=== PATIENT | male | born 1940 | race Caucasian/White ===

== ENCOUNTER 2017-05-15 18:45 | Inpatient (IN) | payer OTHER ==
[~2017-05-15] VITALS: Ht 167.6 cm; Wt 81.8 kg
[2017-05-15] MEDS ORDERED: ONDANSETRON INJ 2 MG/ML 2 ML VIAL IV STA (18:50)
[2017-05-15] MEDS ORDERED: CEFAZOLIN SOD 1000MG/55 ML D5W IV STA (18:50)
[2017-05-15] MEDS ORDERED: MoRPHine SULFATE 4 MG/ML 1 ML CARP\\VIAL IV PRN ×2 (19:00→23:45)
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
[2017-05-15 19:16] LABS: BASO % 0.2 %; BASO ABS # 0.02 K/uL (0-0.2); COMPLETE YES; EOS % 1.5 %; HEMATOCRIT 44.9 % (42-52); IG% 0.8 %; LYMPH ABS # 2.33 K/uL (1.2-3.4); MEAN CORPUSCULAR HEMOGLOBIN 31.3 pg (25-34); MEAN CORPUSCULAR HGB CONC 34.7 g/dl (32-36); MEAN PLATELET VOLUME 11.4 fL (7.4-10.4); MONO % 6.5 %; PLATELET COUNT 216 K/uL (130-400); RED BLOOD COUNT 4.99 M/uL (4.7-6.1); WHITE BLOOD COUNT 8.63 K/uL (4.8-10.8)
[2017-05-15] MEDS ORDERED: NAPR-1169 PO (19:18)
[2017-05-15] MEDS ORDERED: TERA1CAP63 PO (19:18)
[2017-05-15] MEDS ORDERED: ASPI81TA28 PO (19:18)
[2017-05-15] MEDS ORDERED: LISI-461 PO (19:18)
[2017-05-15] MEDS ORDERED: METO50TA16 PO (19:18)
[2017-05-15] MEDS ORDERED: MULT-506 PO (19:18)
[2017-05-15] MEDS ORDERED: ASCA500 PO (19:18)
[2017-05-15] MEDS ORDERED: METO100T14 PO (19:18)
[2017-05-15 19:27] LABS: PROTHROMBIN TIME (PATIENT) 10.8 SECONDS (9.0-12.0)
[2017-05-15 19:34] LABS: BUN/CREATININE RATIO 15.9 (10-20); CALCIUM 9.1 mg/dl (8.5-10.1); POTASSIUM 3.8 mmol/L (3.5-5.1)
--- NOTE | 2017-05-15 20:36 | DIAGNOSTIC IMAGING REPORT ---
CHEST ONE VIEW PORTABLE HISTORY: Generalized abdominal pain. COMPARISON: None. FINDINGS: Moderate hiatus hernia. The heart is normal in size. Right infrahilar lobular density represents prominent mediastinal fat or a fat-containing hernia. No pneumothorax. No pleural effusions. No focal lung consolidations to suggest pneumonia. No evidence for pulmonary edema. Old, healed right lower rib fracture. IMPRESSION: No acute process. Moderate hiatus hernia. Electronically signed by: Deion Manrique M.D. 05/15/2017 8:35 PM Dictated Date/Time: 05/15/2017 8:34 PM
--- NOTE | 2017-05-15 20:45 | DIAGNOSTIC IMAGING REPORT ---
R ANKLE MIN 3 VIEWS ROUTINE, L ANKLE MIN 3 VIEWS ROUTINE, R FOOT MIN 3 VIEWS ROUTINE CLINICAL HISTORY: Bilateral ankle and right foot pain. COMPARISON STUDY: None. FINDINGS: Cortical plate transfixed with screws bridging an old, healed left fibular fracture. The hardware appears intact. Mild left ankle soft tissue swelling. Overlying splint material obscures fine bony detail of the right ankle. Oblique fracture within the distal fibula which demonstrates up to 5 mm of lateral displacement. There is widening of the medial ankle joint up to 5 mm. Soft tissue swelling within the right ankle. There is also 3 mm of posterior displacement of the distal fibular fracture. There is a slightly displaced fracture of the posterior malleolus. Small amount of subcutaneous gas within the distal lower leg/ankle. Suboptimal evaluation of the right foot due to patient positioning. The hindfoot is not included on 2 views. 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 The Lisfranc joint is well aligned. No fracture or dislocation within the right foot. IMPRESSION: 1. Posterior and lateral malleoli fractures of the right ankle as described above with widening of the ankle joint. Small amount of subcutaneous gas of the distal right lower leg/ankle whichmay represent an open fracture versus soft tissue laceration. Clinical correlation recommended. 2. No definite fracture within the right foot. 3. No fracture or dislocation within the left ankle. Electronically signed by: Deion Manrique M.D. 05/15/2017 8:44 PM Dictated Date/Time: 05/15/2017 8:42 PM
[2017-05-15 22:02] LABS: MANUAL MICROSCOPIC REQUIRED? NO; REVIEW REQ? NO; URINE APPEARANCE CLEAR (CLEAR); URINE BILIRUBIN NEG (NEG); URINE COLOR YELLOW; URINE NITRITE NEG (NEG); URINE SPECIFIC GRAVITY 1.015 (1.000-1.030); UROBILINOGEN NEG (NEG)
[2017-05-15] MEDS ORDERED: MULTIVITAMIN TAB PO SCH (23:30)
[2017-05-15] MEDS ORDERED: METOPROLOL TARTRATE 50 MG TAB PO STA (23:32)
[2017-05-15] MEDS ORDERED: TRAMADOL HCL 50 MG TAB PO PRN (23:45)
[2017-05-15] MEDS ORDERED: ONDANSETRON INJ 2 MG/ML 2 ML VIAL IV PRN (23:45)
[2017-05-15] MEDS ORDERED: ACETAMINOPHEN 325 MG TAB PO PRN (23:45)
[2017-05-16] VITALS (13 sets, daily range): BP systolic 116–174; BP diastolic 68–101; PULSE 73–102; TEMP 36.4–36.7; O2SAT 90–97; Ht 167.6 cm; Wt 81.8 kg
[2017-05-16] MEDS ORDERED: LACTATED RINGER'S 1000ML 1,000 ML IV SCH (01:15)
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
[2017-05-16] MEDS: ASPIRIN 81 MG ECTAB PO SCH (08:48)
[2017-05-16] MEDS ORDERED: MULTIVITAMIN TAB PO SCH (09:00)
[2017-05-16] MEDS: LISINOPRIL 10 MG TAB PO SCH (09:53)
[2017-05-16] MEDS: METOPROLOL TARTRATE 50 MG TAB PO SCH ×2 (09:53→21:39)
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
--- NOTE | 2017-05-16 15:54 | History & Physical Bridge Note ---
H&P Re-Evaluation Bridge Note: I have examined the patient, reviewed the History & Physical and in the interval since the performance of the History & Physical I have noted the following changes of clinical significance: No changes noted
[2017-05-16] MEDS ORDERED: ROPIVACAINE 0.5% 5 MG/ML 30 ML VIAL ONE (16:55)
[2017-05-16] MEDS ORDERED: HYDROmorphone INJ 1 MG/ML SYR IV PRN (17:00)
[2017-05-16] MEDS ORDERED: EpHEDrine SULFATE INJ 50 MG/ML AMP IV PRN (17:00)
[2017-05-16] MEDS ORDERED: ONDANSETRON INJ 2 MG/ML 2 ML VIAL IV PRN (17:00)
[2017-05-16] MEDS ORDERED: ATROPINE SULFATE 0.1 MG/ML 5ML SYR IV PRN (17:00)
[2017-05-16] MEDS ORDERED: FENTANYL CITRATE INJ 50 MCG/1 ML 2 ML VIAL IV PRN (17:00)
[2017-05-16] MEDS ORDERED: FENTANYL CITRATE INJ 50 MCG/1 ML 2 ML VIAL ONE (18:05)
[2017-05-16] MEDS ORDERED: MIDAZOLAM HCL 1 MG/ML 2ML VIAL ONE (18:05)
[2017-05-16] MEDS ORDERED: BACITRACIN 50000 UNIT VIAL ONE (18:59)
[2017-05-16] MEDS ORDERED: LIDOCAINE HCL 2% 2 ML VIAL (20MG/ML) ONE (19:11)
[2017-05-16] MEDS ORDERED: CEFAZOLIN SOD 1 GM VIAL ONE (19:11)
[2017-05-16] MEDS ORDERED: PROPOFOL IV EMULSION 10 MG/ML 20 ML VIAL IV ONE (19:11)
[2017-05-16] MEDS ORDERED: VASOPRESSIN 20 UNIT/ML VIAL ONE (19:32)
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
--- NOTE | 2017-05-16 20:43 | Anesthesiology Progress Note ---
Anesthesia Post Op Note Date & Time May 16, 2017 at 20:43 Vital Signs Pain Intensity: 4.0 Vital Signs Past 12 Hours Date Time Temp Pulse Resp B/P (MAP) Pulse Ox O2 Delivery O2 Flow Rate FiO2 05/16/17 15:50 Room Air 05/16/17 15:10 36.4 73 18 173/94 (120) 94 Room Air 05/16/17 14:10 167/74 (105) Notes Mental Status: alert / awake / arousable, participated in evaluation Pt Amnestic to Procedure: Yes Nausea / Vomiting: adequately controlled Pain: adequately controlled Airway Patency, RR, SpO2: stable & adequate BP & HR: stable & adequate Hydration State: stable & adequate Anesthetic Complications: no major complications apparent
[2017-05-16] MEDS ORDERED: OXYCODONE HCL IR 5 MG TAB (IMMEDIATE RELEASE) PO PRN (20:45)
--- NOTE | 2017-05-16 21:19 | DIAGNOSTIC IMAGING REPORT ---
R ANKLE 2 VIEWS HISTORY: 77 years-old Male RT ORIF status post ORIF of the right ankle. Distal tibia and fibular fractures. COMPARISON: Right ankle radiographs 05/15/2017 TECHNIQUE: 3 spot fluoroscopic images of the right ankle were obtained utilizing 27.1 seconds of fluoroscopy time. FINDINGS: There has been interval ORIF with a large lateral plate and screw hardware placement within the distal fibula fixating the previously noted displaced complex fracture. There is improved alignment. There is a large transversely oriented syndesmotic screw from a lateral approach which has also been placed. There is improved alignment of the previously noted posterior malleolar fracture. IMPRESSION: Status post ORIF with improved alignment as above. Please see operative report for further details. The above report was generated using voice recognition software. It may contain grammatical, syntax or spelling errors. Electronically signed by: Luis Altamirano M.D. 05/16/2017 9:18 PM Dictated Date/Time: 05/16/2017 9:16 PM
[2017-05-16] MEDS ORDERED: NURSING VERBAL MED ORDER ONE ×2 (21:30)
[2017-05-16] MEDS: LACTATED RINGER'S 1000ML 1,000 ML IV SCH (21:37)
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
[2017-05-17 00:30] VITALS: BP_SYST 139; BP_SYST 140; BP_DIAS 76; BP_DIAS 82; PULSE 88; PULSE 90; TEMP 36.5; TEMP 36.6; O2SAT 95
[2017-05-17] MEDS: CEFAZOLIN IV 2,000 MG in DEXTROSE 5% 50ML 50 ML IV SCH ×2 (02:14→09:35)
[2017-05-17 04:24] VITALS: BP 151/89; PULSE 101; TEMP 36.6; O2SAT 93
[2017-05-17 07:02] VITALS: BP 154/76; PULSE 72; TEMP 36.8; O2SAT 95
[2017-05-17] MEDS: LACTATED RINGER'S 1000ML 1,000 ML IV SCH (07:24)
--- NOTE | 2017-05-17 08:43 | Orthopedic Progress Note ---
Orthopedic Progress Note Date of Service May 17, 2017. Subjective Post OP Day: 1 Reports: feeling well, pain controlled w PO medications, Denies: complaints, chest pain, SOB, nausea / vomiting, light headedness, calf pain Objective calves soft nontender, N/V intact, capillary refill less than 2 sec., dressing C /D/I, A&O x3, toes mobile Date Time Temp Pulse Resp B/P (MAP) Pulse Ox O2 Delivery O2 Flow Rate FiO2 05/17/17 07:02 36.8 72 17 154/76 (102) 95 Room Air 05/17/17 07:00 Room Air 05/17/17 04:24 36.6 101 16 151/89 (109) 93 Room Air 05/17/17 00:30 36.6 90 18 140/76 (97) 95 Room Air 05/16/17 23:30 Room Air 05/16/17 23:30 36.5 88 18 139/82 (101) 95 Room Air 05/16/17 22:25 36.5 92 18 141/79 (99) 94 Room Air 05/16/17 21:55 36.5 97 18 155/82 (106) 93 Room Air 05/16/17 21:25 36.7 102 18 152/88 (109) 96 Nasal Cannula 2.0 05/16/17 21:25 Nasal Cannula 2.0 05/16/17 21:25 Nasal Cannula 2.0 05/16/17 21:15 100 18 154/83 93 Nasal Cannula 2 05/16/17 21:05 36.3 98 16 136/91 93 Nasal Cannula 2 05/16/17 20:55 102 18 117/81 94 Nasal Cannula 2 05/16/17 20:45 100 13 145/93 96 Oxymask 10 05/16/17 20:35 36.0 99 14 136/62 98 Oxymask 10 05/16/17 15:50 Room Air 05/16/17 15:10 36.4 73 18 173/94 (120) 94 Room Air 05/16/17 14:10 167/74 (105) Assessment & Plan Assessment: POD #1, Right ankle ORIF, Irrigation medial laceration, syndesmosis fixation. Plan: PT/ OT- NON weight bearing with walker DVT proph- ASA D/C plans per primary team F/U w Dr. Parry 10-12 days post op
--- NOTE | 2017-05-17 08:48 | Consultant Recommendations ---
Operating Room Aide Recommendations Date of Service May 17, 2017. Operating Room Aide Recommendations NON weight bearing right leg with walker. Ice/ elevate as needed Keep dressings and splint clean dry and in tact, DO NOT remove or get wet. DVT prophylaxis- Aspirin daily Follow up with Dr. Parry 10-12 days post op, call [facility] at for appt.
[2017-05-17] MEDS: METOPROLOL TARTRATE 50 MG TAB PO SCH (08:59)
[2017-05-17] MEDS: ASPIRIN 81 MG ECTAB PO SCH (08:59)
[2017-05-17] MEDS: LISINOPRIL 10 MG TAB PO SCH (09:00)
[2017-05-17 11:30] VITALS: BP 159/77; PULSE 86; TEMP 36.7; O2SAT 94
--- NOTE | 2017-05-17 12:28 | Progress Note ---
Subjective Date of Service: May 17, 2017. Subjective Pt evaluation today including: conversation w/ patient, physical exam, lab review, review of studies, review of inpatient medication list Saw/examined the patient in room 352 He's doing well, pain is controlled at the ankle No other issues to note Family member at bedside state they have a wheelchair at home, they know he is not to weightbearing on R ankle Problem List Medical Problems: (1) Contusion of left ankle Status: Acute (2) Contusion of left foot Status: Acute (3) Open trimalleolar fracture of right ankle Status: Acute Review of Systems Respiratory: No shortness of breath Cardiac: No chest pain Abdomen: No nausea, No vomiting, No diarrhea Musculoskeletal: No joint pain Medications Current Inpatient Medications Medications (Trade) Dose Ordered Sig/Alessandro Route Start Time Stop Time Status Last Admin Dose Admin Terazosin HCl (Hytrin Cap) 10 mg HS PO 05/16/17 21:00 06/15/17 20:59 05/16/17 21:38 10 MG Aspirin (Ecotrin Tab) 81 mg DAILY PO 05/16/17 09:00 06/15/17 08:59 05/17/17 08:59 81 MG Lisinopril (Zestril Tab) 10 mg QAM PO 05/16/17 09:00 06/15/17 08:59 05/17/17 09:00 10 MG Metoprolol Tartrate (Lopressor Tab) 50 mg BID PO 05/16/17 09:00 06/15/17 08:59 05/17/17 08:59 50 MG Acetaminophen (Tylenol Tab) 650 mg Q4H PRN PO 05/15/17 23:45 06/14/17 23:44 Tramadol HCl (Ultram Tab) not relieved by tylenol @ Q6H PRN PO 05/15/17 23:45 06/14/17 23:44 Ondansetron HCl (Zofran Inj) 4 mg Q6H PRN IV 05/15/17 23:45 06/14/17 23:44 Morphine Sulfate (MoRPHine SULFATE INJ) 4 mg Q3H PRN IV 05/15/17 23:45 05/29/17 23:44 Multivitamins (Multivitamin Tab) 1 tab Q2D PO 05/16/17 09:00 06/15/17 08:59 Oxycodone HCl (Roxicodone Immediate Rel Tab) 1-2 TABS FOR PAIN 1 TABLET ... Q4H PRN PO 05/16/17 20:45 05/30/17 20:44 05/17/17 11:03 5 MG Lactated Ringer's 1,000 ml @ 100 mls/hr Q10H IV 05/16/17 21:30 06/15/17 21:29 05/17/17 07:24 100 MLS/HR Objective Vital Signs Date Time Temp Pulse Resp B/P (MAP) Pulse Ox O2 Delivery O2 Flow Rate FiO2 05/17/17 07:02 36.8 72 17 154/76 (102) 95 Room Air 05/17/17 07:00 Room Air 05/17/17 04:24 36.6 101 16 151/89 (109) 93 Room Air 05/17/17 00:30 36.6 90 18 140/76 (97) 95 Room Air 05/16/17 23:30 Room Air 05/16/17 23:30 36.5 88 18 139/82 (101) 95 Room Air 05/16/17 22:25 36.5 92 18 141/79 (99) 94 Room Air 05/16/17 21:55 36.5 97 18 155/82 (106) 93 Room Air 05/16/17 21:25 36.7 102 18 152/88 (109) 96 Nasal Cannula 2.0 05/16/17 21:25 Nasal Cannula 2.0 05/16/17 21:25 Nasal Cannula 2.0 05/16/17 21:15 100 18 154/83 93 Nasal Cannula 2 05/16/17 21:05 36.3 98 16 136/91 93 Nasal Cannula 2 05/16/17 20:55 102 18 117/81 94 Nasal Cannula 2 05/16/17 20:45 100 13 145/93 96 Oxymask 10 05/16/17 20:35 36.0 99 14 136/62 98 Oxymask 10 05/16/17 15:50 Room Air 05/16/17 15:10 36.4 73 18 173/94 (120) 94 Room Air 05/16/17 14:10 167/74 (105) Physical Exam General Appearance: no apparent distress Respiratory/Chest: no respiratory distress, no accessory muscle use Extremities: normal inspection, no pedal edema, + pertinent finding (R ankle in brace) Assessment and Plan This is a 77 year old male with a PMH of HTN, HLD presented with R ankle fracture R ankle fracture s/p ORIF POD #1 doing well, pain controlled NWB status on the R doing well; aspirin for DVT ppx can be d/c'd home with home health today f/u with Dr. Parry in 10-12 days HTN blood pressure stable DVT ppx aspirin FULL CODE
[2017-05-17] MEDS ORDERED: RXC5 PO (12:31)
--- NOTE | 2017-05-17 12:33 | Discharge Instructions ---
Discharge Instructions Date of Service May 17, 2017. Admission Reason for Admission: Open Trimalleolar Fx Of Right Ankle Discharge Discharge Diagnosis / Problem: Right Ankle Fracture with repair Discharge Goals Goal(s): Decrease discomfort, Improve function Activity Recommendations Activity Limitations: per Instructions/Follow-up section (no driving while taking narcotic pain medications) Weightbearing Status: Right non-weightbearing . Instructions / Follow-Up Instructions / Follow-Up NON weight bearing right leg with walker. Ice/ elevate as needed Keep dressings and splint clean dry and in tact, DO NOT remove or get wet. DVT prophylaxis- Aspirin daily Follow up with Dr. Parry 10-12 days post op, call [facility] at [phone] for appt. Current Hospital Diet Patient's current hospital diet: AHA Diet (Heart Healthy) Discharge Diet Recommended Diet: AHA Diet (Heart Healthy) Procedures Procedures Performed: Open Reduction Internal Fixation Right Lateral Malleolus Fracture; Syndesmotic Repair right ankle; Irrigation and Debridement medial ankle Laceration Pending Studies Studies pending at discharge: no Medical Emergencies . Who to Call and When: Medical Emergencies: If at any time you feel your situation is an emergency, please call 911 immediately. . Non-Emergent Contact Non-Emergency issues call your: Primary Care Provider, Surgeon . . "Provider Documentation" section prepared by Andie Casiano. . Bull Wheel Worker Recommendations Bull Wheel Worker Recommendations: NON weight bearing right leg with walker. Ice/ elevate as needed Keep dressings and splint clean dry and in tact, DO NOT remove or get wet. DVT prophylaxis- Aspirin daily Follow up with Dr. Parry 10-12 days post op, call [facility] at for appt. VTE Core Measure Inpt VTE Proph given/why not?: Other Anticoagulation (aspirin) [place] Drug Monitoring Program Search Results: patient reviewed within database, no issues identified
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
[2017-05-17 12:43] VITALS: BP 159/77; PULSE 86; TEMP 36.7; O2SAT 94
--- NOTE | 2017-05-22 08:03 | DIAGNOSTIC IMAGING REPORT ---
LEFT FOOT 3 VIEWS CLINICAL HISTORY: Left foot pain. FINDINGS: 3 views of the left foot are obtained. No prior studies are available for comparison at the time of dictation. The skeletal structures are osteopenic. Chronic posttraumatic deformity and postoperative change is seen in the fibula. No acute fracture is identified in the left foot. Mild arthritic change is noted at the first metatarsophalangeal joint. There are dorsal and plantar calcaneal enthesophytes. An os trigonum is incidentally noted. The overlying soft tissues are normal as visualized. IMPRESSION: 1. No acute bony abnormality is seen in left foot. 2. Osteopenia, mild arthritic change, and heel spurs as above. Electronically signed by: Pino Saldaña M.D. 05/22/2017 8:02 AM Dictated Date/Time: 05/22/2017 8:00 AM
== END 2017-05-17 14:04 | disposition home health service (06) | DRG 465 ==
LOC: C.EDC 18:49 → C.MSW 23:12 → ENRESERV 23:22
PROVIDERS: ADMIT Internal Medicine; ATTEND Family Medicine
PROC: 0QSJ04Z Reposition Right Fibula with Internal Fixation Device, Open Approach (ICD-10-PCS; principal; 2017-05-16 14:45)
PROC: 0QSG04Z Reposition Right Tibia with Internal Fixation Device, Open Approach (ICD-10-PCS; principal; 2017-05-16 14:45)
PROC: 0JBN0ZZ Excision of Right Lower Leg Subcutaneous Tissue and Fascia, Open Approach (ICD-10-PCS; principal; 2017-05-16 14:45)
DX: S82.61XA Displaced fracture of lateral malleolus of right fibula, initial encounter for closed fracture (principal); S93.431A Sprain of tibiofibular ligament of right ankle, initial encounter; S91.011A Laceration without foreign body, right ankle, initial encounter; I10 Essential (primary) hypertension; Z86.73 Personal history of transient ischemic attack (TIA), and cerebral infarction without residual deficits; J44.9 Chronic obstructive pulmonary disease, unspecified; Z87.891 Personal history of nicotine dependence; Z79.82 Long term (current) use of aspirin; V03.00XA Pedestrian on foot injured in collision with car, pick-up truck or van in nontraffic accident, initial encounter

== ENCOUNTER → 2017-08-14 | Outpatient (CLI) | payer OTHER ==
[~2017-08-14] MED LIST: ASCA500 PO; ASPI81TA28 PO; LISI-461 PO; METO50TA16 PO; MULT-506 PO; NAPR-1169 PO; RXC5 PO; TERA1CAP63 PO
--- NOTE | 2017-08-14 15:29 | DIAGNOSTIC IMAGING REPORT ---
VENOUS DOPP LOWER EXT UNILAT CLINICAL HISTORY: RULE OUT DVT pain. Edema. Venous Doppler TECHNIQUE: Venous Doppler COMPARISON STUDY: None FINDINGS: Normal study IMPRESSION: Normal study The above report was generated using voice recognition software. It may contain grammatical, syntax or spelling errors. Electronically signed by: Osmani Rao M.D. 08/14/2017 3:28 PM Dictated Date/Time: 08/14/2017 3:27 PM
== END | disposition home or self-care (01) ==
LOC: C.ULTR 14:56
PROVIDERS: ATTEND Orthopaedic Surgery Sports Medicine
DX: M79.661 Pain in right lower leg (principal)